=== PATIENT | female | born 1990 | race Caucasian/White ===

== ENCOUNTER → 2021-01-22 | Outpatient (CLI) | payer BC | LOC: US 09:14 | PROVIDERS: ATTEND Otolaryngology | DX: E04.9 Nontoxic goiter, unspecified (principal) | CPT/HCPCS: 10005; 10006; 88112; 88172; 88173; 88305 ==

== ENCOUNTER → 2022-02-01 | Outpatient (CLI) | payer BC | LOC: US 13:34 | PROVIDERS: ATTEND Otolaryngology | DX: E04.9 Nontoxic goiter, unspecified (principal) | CPT/HCPCS: 76536 ==